=== PATIENT | male | born 1935 | race Caucasian/White ===

== ENCOUNTER 2017-02-16 09:41 | Day surgery (SDC) | payer MEDICARE ==
--- NOTE | ~2017-02-16 | EGD ---
EGD REPORT [facility] [address] [place] [address] NAME: SRIDHAR ROWE : 39 STATUS : [place] [facility] [place] [id number] AGE: 81 ADM/REG DATE : 02/16/17 MR#: [id number] REPORT SERV DATE: 02/16/17 DICTATED BY: EFRAÍN JARQUIN DATE: 02/16/17 REPORT STATUS : Draft [facility]ANS[facility]IBED BY: [facility] DATE: 02/16/17 Endoscopy Center Patient Name: Sridhar Rowe Date of : 1935 Attending MD: EFRAÍN JARQUIN MD Procedure Date No Time: 02/16/2017 Procedure: Upper GI endoscopy Indications: Follow-up of Lima's esophagus Referring MD: Gene SNIDER Medicines: Propofol per Anesthesia Complications: No immediate complications. Estimated blood loss: None. Procedure: Pre-Anesthesia Assessment: - After reviewing the risks and benefits, the patient was deemed in satisfactory condition to undergo the procedure. - Prior to the procedure, a History and Physical was performed, and patient medications and allergies were reviewed. The patient's tolerance of previous anesthesia was also reviewed. The risks and benefits of the procedure and the sedation options and risks were discussed with the patient. All questions were answered, and informed consent was obtained. Prior Anticoagulants: The patient has taken no previous anticoagulant or antiplatelet agents. ASA Grade Assessment: III - A patient with severe systemic disease. After reviewing the risks and benefits, the patient was deemed in satisfactory condition to undergo the procedure. After obtaining informed consent, the endoscope was passed under direct vision. Throughout the procedure, the patient's blood pressure, pulse, and oxygen saturations were monitored continuously. The GIF [id number] was introduced through the mouth, and advanced to the third part of duodenum. The upper GI endoscopy was accomplished without difficulty. The patient tolerated the procedure well. 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 Biopsies were taken with a cold forceps for histology. Estimated blood loss: none. Mild inflammation characterized by erythema was found in the gastric antrum. The gastroesophageal junction (on retroflexion) was normal. The examined duodenum was normal. EGD REPORT [address] [address] NAME: SRIDHAR ROWE : 39 STATUS : [place] [facility] [place] [id number] AGE: 81 ADM/REG DATE : 02/16/17 MR#: [id number] REPORT SERV DATE: 02/16/17 DICTATED BY: EFRAÍN JARQUIN DATE: 02/16/17 REPORT STATUS : Draft TRANSCRIBED BY: [facility] DATE: 02/16/17 Impression: - Esophageal mucosal changes secondary to established short-segment Lima's disease. Biopsied. - Gastritis. - Normal gastroesophageal junction. - Normal examined duodenum. - Non-erosive esophageal reflux (NERD) disease present. Recommendation: - Discharge patient to home (ambulatory). - Resume previous diet. - Continue previous medications including Prilosec (omeprazole) 20 mg daily before meal. - Repeat upper endoscopy and esophageal biopsies in 2 years for surveillance of Lima's esophagus. - Follow-up as needed. - Patient has a contact number available for emergencies. The signs and symptoms of potential delayed complications were discussed with the patient. Return to normal activities tomorrow. Written discharge instructions were provided to the patient. Procedure Code(s): --- Professional --- 16640, Esophagogastroduodenoscopy, flexible, transoral; with biopsy, single or multiple Diagnosis Code(s): --- Professional --- K22.70, Lima's esophagus without dysplasia K29.70, Gastritis, unspecified, without bleeding K21.9, Gastro-esophageal reflux disease without esophagitis CPT copyright 2013 [employer]. All rights reserved. The codes documented in this report are preliminary and upon lacemaker review may be revised to meet current compliance requirements. EFRAÍN JARQUIN MD 02/16/2017 11:37 AM This report has been signed electronically. Number of Addenda: 0 Note Initiated On: 02/16/2017 11:15 AM Scope Withdrawal Time 0 hours 0 minutes 0 seconds [id number] [id number]
[~2017-02-16 09:41] MED LIST: ADVIL PO; APRES50 PO; CHROMIUM PO; CINNAMON PO; COSOPT OPH; DSS PO; FISH-EPA1000 MG PO; GLUCOSAMINE1 TA2 PO; HYZAAR 100/25 T1 TAB PO; L20 PO; LOP25 PO; MAGNESIUM PO; NORV5 PO; OXYCOD PO; PREV30 PO; PRILO PO; PRIN10 PO; TOPXL50 PO
[2017-02-16 10:29] LABS: BUN (BLOOD UREA NITROGEN) 20 MG/DL (6-23); CALCIUM, SERUM 9.1 MG/DL (8.5-10.4); CHLORIDE, SERUM 107 MMOL/L (96-112); CO2 (CARBON DIOXIDE) 30 MMOL/L (24-34); GFR AFRICAN AMERICAN 43 ML/MIN (>=60); GFR NON AFRICAN AMERICAN 38 ML/MIN (>=60); GLUCOSE, SERUM 101 MG/DL (60-99); SODIUM, SERUM 141 MMOL/L (135-148)
== END 2017-02-16 23:59 | disposition home or self-care (01) ==
LOC: DMU 09:41
PROVIDERS: Anesthesiology; Internal Medicine Gastroenterology
PROC: 0DB58ZX Excision of Esophagus, Via Natural or Artificial Opening Endoscopic, Diagnostic (ICD-10-PCS; principal; 2017-02-16 11:30)
DX: K22.70 Barrett's esophagus without dysplasia (principal); K29.70 Gastritis, unspecified, without bleeding; K21.9 Gastro-esophageal reflux disease without esophagitis; Z85.528 Personal history of other malignant neoplasm of kidney; Z90.5 Acquired absence of kidney
CPT/HCPCS: 80048; 88305